=== PATIENT | female | born 1980 | race Caucasian/White ===

== ENCOUNTER 2017-02-11 18:53 | Emergency (ER) | payer MEDICAID, OTHER ==
[~2017-02-11] VITALS: Ht 182.9 cm; Wt 104.5 kg
[2017-02-11] MEDS ORDERED: PROMETHAZINE INJ 25 MG/ML VIAL (J2550) IV ONE (20:00)
--- NOTE | 2017-02-11 20:30 | REPUSA ---
CT of the head Clinical history: trauma. Technique: Multiple axial CT images were obtained through the head without administration of contrast . Comparison: None. Findings: The ventricles and sulci are symmetric bilaterally. There is no evidence of acute hemorrhag e or infarct. There is no midline shift, mass effect, or extra-axial fluid collection. The osseous st ructures are unremarkable. The visualized paranasal sinuses and mastoid air cells are clear. Impression: Negative study.
[2017-02-11 20:41] LABS: BASO # 0.1 K/mm3 (0.0-0.2); BASO % 0.7 % (0.0-1.0); EOS # 0.2 K/mm3 (0.0-0.50); EOS % 2.6 % (0.0-3.0); LARGE UNSTAINED CELL # 0.2 K/mm3 (0.0-0.4); LARGE UNSTAINED CELL % 1.7 % (0.0-4.0); LYMPH # 2.3 K/mm3 (1.5-4.5); MEAN CORPUSCULAR HEMOGLOBIN 29.8 pg (27.0-33.0); MEAN CORPUSCULAR HGB CONC 33.5 g/dl (32.0-36.5); MEAN CORPUSCULAR VOLUME 88.8 fl (80.0-96.0); MONO # 0.5 K/mm3 (0.0-0.8); MONO % 5.2 % (0.0-5.0); NEUTROPHILS # 5.7 K/mm3 (1.8-7.7); NEUTROPHILS % 63.8 % (36.0-66.0); PLATELET COUNT, AUTOMATED 296 k/mm3 (150-450); RED CELL DISTRIBUTION WIDTH 12.4 % (11.5-14.5); WHITE BLOOD COUNT 8.9 K/mm3 (4.0-10.0)
[2017-02-11 21:08] LABS: ANION GAP 7 MEQ/L (8-16); BLOOD UREA NITROGEN 17 MG/DL (7-18); CALCIUM LEVEL 9.3 MG/DL (8.5-10.1); CARBON DIOXIDE LEVEL 28 MEQ/L (21-32); CHLORIDE LEVEL 105 MEQ/L (98-107); CREATININE FOR GFR 0.93 MG/DL (0.55-1.02); GLOMERULAR FILTRATION RATE > 60.0 (>60); GLUCOSE, FASTING 90 MG/DL (70-105); POTASSIUM SERUM 4.5 MEQ/L (3.5-5.1); SODIUM LEVEL 140 MEQ/L (136-145)
[2017-02-11] MEDS ORDERED: diphenhydrAMINE INJ 50MG/ML VIAL (J1200) IV STA (21:21)
[2017-02-11] MEDS ORDERED: KETOROLAC 30 MG/ML VIAL (J1885) IV ONE (21:30)
[2017-02-11] MEDS ORDERED: PERCOCET 5MG/325MG TAB PO ONE (23:00)
[2017-02-11 23:28] VITALS: BP 124/67
--- NOTE | 2017-02-12 01:10 | REP ---
Clinical: Trauma. Fall. Technique: Cephalic angled, caudal angled, lateral views of the sacrum and coccyx. Findings: Sacrum and coccyx appear intact. The bilateral sacroiliac joints are symmetric and normal. Incidental IUD identified. Impression: No obvious sacral coccygeal injury identified. Signed by Gabriel Sigala MD 02/12/2017 01:03 A
--- NOTE | 2017-02-12 01:12 | REP ---
Clinical: Trauma. Fall . Technique: Internal rotation, external rotation, and Y view left shoulder . Findings: No acute fracture or dislocation. The acromioclavicular and glenohumeral joints are intact. No periarticular calcifications or degenerative changes are appreciated. Sub acromial space is normal. Surrounding soft tissues are unremarkable. Impression: Normal left shoulder radiographs. Signed by Gabriel Sigala MD 02/12/2017 01:04 A
--- NOTE | 2017-02-12 16:22 | ECGEPIP ---
Stationary ECG Study [facility] - ED Test Date: 2017-02-11 Pat Name: JACK BERMAN Department: Room: - Gender: F Projects Manager: terri : 1980 Requested By: LALO Silva Order Number: [id number] Reading MD: Janae Kaur Measurements Intervals [place] Rate: 53 P: 55 AR: 162 QRS: 62 QRSD: 85 T: 56 QT: 402 QTc: 379 Interpretive Statements SINUS BRADYCARDIA NO PRIOR FOR COMPARISON Electronically Signed On 02-12-2017 16:22:02 EDT by Janae Kaur
== END 2017-02-11 23:31 | disposition home or self-care (01) ==
LOC: M ED 19:26
DX: S09.90XA Unspecified injury of head, initial encounter (principal); W19.XXXA Unspecified fall, initial encounter; Y92.149 Unspecified place in prison as the place of occurrence of the external cause; Y93.89 Activity, other specified; Y99.8 Other external cause status; M25.512 Pain in left shoulder; R55 Syncope and collapse; F17.210 Nicotine dependence, cigarettes, uncomplicated; F19.20 Other psychoactive substance dependence, uncomplicated
CPT/HCPCS: 70450; 72220; 73030; 80048; 85025; 93005; 96374; 96375; 99284; J1200; J1885

== ENCOUNTER → 2017-04-25 | Outpatient (CLI) | payer OTHER ==
--- NOTE | 2017-04-25 11:09 | REP ---
Chest x-ray: Two views. History: Question pneumonia. Chest wall pain with respiration. . Comparison study: No comparison study . Findings: The lungs are well inflated and free of infiltrate. The pleural angles are sharp. The heart size is normal. Pulmonary vasculature is not increased. No significant bony abnormality is seen. Impression: Negative chest x-ray. Signed by Camilo Yu MD 04/25/2017 11:01 A
== END ==
LOC: M WUC 10:29
PROVIDERS: ATTEND Surgery
DX: R07.1 Chest pain on breathing (principal)

== ENCOUNTER 2022-01-26 22:24 | Emergency (ER) | payer OTHER ==
[~2022-01-26] VITALS: Ht 185.4 cm; Wt 113.6 kg
[2022-01-26 22:25] VITALS: BP 155/87
== END 2022-01-26 22:32 | disposition left against medical advice (07) ==
LOC: M ED 22:24
DX: Z53.21 Procedure and treatment not carried out due to patient leaving prior to being seen by health care provider (principal)

== ENCOUNTER 2022-07-04 22:44 | Emergency (ER) | payer OTHER ==
[~2022-07-04] VITALS: Ht 185.4 cm; Wt 122.7 kg
[2022-07-04 23:35] VITALS: BP 140/76
[2022-07-04] MEDS ORDERED: ACETAMINOPHEN 500 MG TAB PO ONE (23:55)
== END 2022-07-05 03:52 | disposition left against medical advice (07) ==
LOC: M ED 22:44
DX: Z53.21 Procedure and treatment not carried out due to patient leaving prior to being seen by health care provider (principal)